=== PATIENT | female | born 1965 | race Caucasian/White ===

== ENCOUNTER 2016-12-16 13:14 | Inpatient (IN) ==
--- NOTE | 2016-12-16 14:15 | XRay Report ---
Exam: XR chest 1V Date: 12/16/2016 1:47 PM Indication: Shortness of breath Comparison: None Technical: AP Findings: Mild prominence of the cardiac silhouette. Patchy alveolar infiltrates are present bilaterally with low volume effusion. External cardiac leads are present. Mediastinum is intact without acute findings with small calcified nodes present bilaterally. Bony structures are intact. Impression: 1. Cardiomegaly with patchy alveolar infiltrates could represent pneumonic infiltrate. Pulmonary edematous changes would also be considered for this patient. PROCEDURE INTERPRETED AT [facility] DEPARTMENT OF RADIOLOGY Final Report Signed by: Dr. Pranay Pritchett
[2016-12-16] MEDS ORDERED: FUROSEMIDE INJ 160 MG in SODIUM CHLORIDE 0.9% 50 ML IV STA (14:16)
[2016-12-16] MEDS ORDERED: FUROSEMIDE 100 MG/10 ML VIAL ONE (14:22)
[2016-12-16 14:30] LABS: Eosinophils % 0.2 % (0.00-10.9); Hematocrit 26.8 VOL% (35.7-47.0); Hemoglobin 8.6 GM/DL (12.0-16.0); Lymphocytes # 0.5 10*3/uL (1.4-4.0); Lymphocytes % 4.3 % (21.3-54.2); Mean Corpuscular HGB Conc 32.1 GM/DL (32-36); Mean Corpuscular Hemoglobin 33 PG (27-34); Mean Corpuscular Volume 102.3 FL (87-102); Mean Platelet Volume 10.7 FL (9.6-12.0); Monocytes # 0.6 10*3/uL (0.11-0.8); Monocytes % 5.9 % (1.7-12.7); Neutrophils # 9.3 10*3/uL (1.4-7.4); Neutrophils % 88.6 % (38.7-73.9); Platelet Count 134 T/CUMM (130-400); Red Blood Count 2.62 MC/CUMM (3.8-5.5); Red Cell Distribution Width 22.1 % (9.3-17.3); White Blood Count 10.5 T/CUMM (4-12)
[2016-12-16 14:44] LABS: ABG Base Excess -1.2 MMOL/L (-2.5-2.5); ABG HCO3 23.5 MMOL/L (20-26); ABG Oxygen Saturation 82.9 % (95-100); ABG PCO2 39.1 MM HG (35-48); ABG PH 7.397 (7.35-7.45); ABG PO2 50.7 MM HG (80-95); ABG TCO2 24.7 MMOL/L (23-27)
[2016-12-16 14:45] LABS: Bilirubin,Total 7.4 MG/DL (0.2-1.0); Calcium 8.3 MG/DL (8.5-10.1); Osmolality,Calculated 276.7 MOS/KG (273-304); Potassium 3.6 MMOL/L (3.5-5.1); Total Protein 6.7 G/DL (6.4-8.3)
[2016-12-16 14:47] LABS: Lactic Acid 3.3 MMOL/L (0.4-2.0)
[2016-12-16] MEDS ORDERED: PROPOFOL 1,000 MG/100 ML BOTTLE IV ONE (14:54)
[2016-12-16] MEDS ORDERED: ETOMIDATE 20 MG/10 ML VIAL IV ONE (14:59)
[2016-12-16] MEDS ORDERED: SUCCINYLCHOLINE 200 MG/10 ML VIAL ONE (14:59)
[2016-12-16] MEDS: PROPOFOL 1,000 MG/100 ML BOTTLE IV SCH ×2 (15:09→19:31)
--- NOTE | 2016-12-16 15:13 | XRay Report ---
Exam: XR chest 1V portable Date: 12/16/2016 2:49 PM Indication: Status post intubation endotracheal tube and nasogastric tube placement Comparison: 12/16/2016 at 1:53 PM Technical: AP Findings: Endotracheal tube placement at the level of the aortic knob. Nasogastric tube is faintly demonstrated traverses the esophagus the upper stomach area. Diffuse patchy alveolar densities are present bilaterally with low volume effusions. Cardiomegaly is present. Impression: 1. Interval placement endotracheal tube and nasogastric tube. 2. Diffuse alveolar infiltrates and effusions present bilaterally again findings are suggestive of pulmonary edema or diffuse infiltrate or ARDS. PROCEDURE INTERPRETED AT [facility] DEPARTMENT OF RADIOLOGY Final Report Signed by: Dr. Pranay Pritchett
[2016-12-16] MEDS ORDERED: SODIUM CHLORIDE 0.9% 1,000 ML IV STA (15:16)
[2016-12-16] MEDS ORDERED: VECURONIUM 10 MG VIAL IV ONE (15:22)
[2016-12-16 15:55] LABS: Lymphocytes 5 % (20-55); Platelet Estimate Adequate; Polychromasia Slight; Segmented Neutrophils 94 % (50-85); Total Cells Counted 100
[2016-12-16] MEDS ORDERED: VECURONIUM 10 MG VIAL IV STA (16:01)
--- NOTE | 2016-12-16 16:03 | Event Note ---
Procedure note Right internal jugular triple-lumen catheter placement The patient was seen and examined. The site was marked. A timeout was taken. The patient's identity, procedure, consent and location were identified. The patient was prepped and draped in sterile fashion. Local anesthesia was given with 1% lidocaine plain. The right internal jugular vein was accessed and the guide wire placed without difficulty. After using the tissue dilator, the triple lumen catheter was placed over the wire and the wire removed intact. All ports were flushed with normal saline and functioned well. The central line was secured with the enclosed suture. A chest x-ray was ordered to confirm placement. The patient tolerated the procedure well. The nurse will place the appropriate dressing according to the hospital protocols.
[2016-12-16] MEDS ORDERED: cefTRIAXone 1,000 MG VIAL ONE (16:07)
[2016-12-16] MEDS ORDERED: ONDANSETRON 4 MG/2 ML VIAL IV PRN (16:12)
[2016-12-16] MEDS ORDERED: ALBUTEROL 2.5 MG/3 ML NEB RESP TX PRN (16:12)
[2016-12-16] MEDS ORDERED: cefTRIAXone 1,000 MG in SODIUM CHLORIDE 0.9% 100 ML IV STA (16:12)
--- NOTE | 2016-12-16 16:17 | Emergency Department Note ---
Marycruz Mora Gwan, am scribing for, and in the presence of, Miguel Green M.D. 14:58. Norma Mora Howard T, M.D., personally performed the services described in this documentation, ascribed by Sammie Joel in my presence, and it is both accurate and complete 615 . Arrival - Arrival Chief Complaint: Shortness of Breath ED Nursing Triage Note: pt has cirrhois. pt started ahving cp and sob last night. pt took an extra lasix last night. pt placed on cpap per ems Mode of Arrival: Stretcher Limitations: No Limitations Source: Patient, EMS, Old Records Reviewed, RN Notes Reviewed - History of Present Illness HPI Narrative: Patient is a 51 y/o chronically ill appearing white female with a hx of Ascites and Cirrhosis who presents to the ED via EMS with a c/o chest pain and SOB with an onset today. She has a PMHx of Cirrhosis. Patient stated that she reported to her PCP 5 days ago for same sxs and her prescriptions for Lasix was increased from 80mg to 160mg. She continued to note that her sxs began to worsen 2 days ago and was at its worse last night. Today she noticed that she was still not getting any relief from sxs and they began to include abd pain/ distention prompting her to alert EMS. Patient confirmed that her last Paracentesis was 10/10/2016 and that it was performed at [facility]. Patient arrived in moderate respiratory distress. EMS notes that en route, CPAP was placed with minimal relief. Onset (ago): hour(s) Consistency: constant Severity: severe Allergies/Adverse Reactions: Allergies Allergy/AdvReac Type Severity Reaction Status Date / Time Buspirone [From BuSpar] Allergy Unknown/Unable Verified 12/16/16 13:25 to obtain Hydromorphone [From Dilaudid] Allergy Unknown/Unable Verified 12/16/16 13:25 to obtain Review of System - Review of System 12 point system: reviewed and no additional remarkable complaints except as stated - Review of System Constitutional: Absent: chills, fever Eyes: Absent: discharge, pain Head/Ears/Nose/Throat: Absent: earache Respiratory: Absent: cough Cardiovascular: Present: as per HPI, chest pain Medical,Surgical,& Family Hx - Medical History Neurology: History of: Migraine Gastrointestinal: History of: GERD, Liver Problems (cirrhios) - Social History Smoking Status: Never smoker Frequency of Alcohol Use: None Type of Drug Use: None Exam Vital Signs: Vital Signs Temperature 96.3 F L 12/16/16 13:22 Pulse Rate 108 H 12/16/16 14:30 Respiratory Rate 30 H 12/16/16 14:30 Blood Pressure 123/58 12/16/16 13:22 O2 Sat by Pulse Oximetry 100 12/16/16 14:30 - General General appearance: alert, in distress (moderate repiratory distress), obese - Head Head exam: Present: atraumatic, normocephalic - Eye Eye exam: Present: normal appearance, PERRL, EOMI - ENT ENT exam: Present: normal oropharynx, mucous membranes moist, TM's normal bilaterally, normal external ear exam - Neck Neck exam: Present: full ROM, trachea midline. Absent: tenderness - Chest Chest inspection: Present: symmetric chest wall rise. Absent: tenderness - Respiratory Respiratory exam: Present: rales (diffuse pulmonary crackles ), respiratory distress (mildly ) - Cardiovascular Cardiovascular exam: Present: normal rhythm, tachycardia - Abdominal Exam Abdominal exam: Present: distention (abd was tight and consistant with ascites) - Extremities Exam Extremities exam: Present: other (+2 pitting edema bilateral LE) - Neurological Exam Neurological exam: Present: alert, oriented X3, CN II-XII intact. Absent: motor sensory deficit - Psychiatric Psychiatric exam: Present: anxious - Skin Skin exam: Present: warm, dry, intact Course Course Narrative: Medical decision making: Patient agreed to intubation and ET tube placed successfully on first attempt. Discussed with hospitalist for admission and continued care of multiple medical issues. Procedures - Intubation Time out performed: Yes sedative: Etomidate Mg Given: 20 paralytic: Succinylcholine Mg Given: 100 Laryngoscope: fiber optic video scope Assist Device Used: fiber optic device ET Tube Size: 7.5 ET Tube Uncuffed: No Tube Secured Depth (cm): 22 Tube Secured Location: lips Tube Placement Confirmation: visualized tube passing through cords, equal breath sounds bilaterally, no breath sounds over epigastrium, confirmation by capnometry, confirmation detector color change Patient Tolerated Procedure: well, no complications Intubation Complications: none Results - Labs CBC & BMP: 12/16/16 13:48 12/16/16 13:48 Lab Results: I have reviewed the patients labs Labs: Laboratory Tests 12/16/16 13:48 WBC 10.5 RBC 2.62 L Hgb 8.6 L Hct 26.8 L MCV 102.3 H RDW 22.1 H Plt Count 134 Neut % (Auto) 88.6 H Lymph % (Auto) 4.3 L Neut # (Auto) 9.3 H Lymph # (Auto) 0.5 L Laboratory Tests 12/16/16 12/16/16 13:48 14:41 ABG pH 7.397 ABG pCO2 39.1 ABG pO2 50.7 L ABG HCO3 23.5 ABG Total CO2 24.7 ABG O2 Saturation 82.9 L ABG Base Excess -1.2 Ammonia 54 H - Diagnostic Findings Procedure: Chest x-ray: report reviewed by me (Cardiomegaly with patchy alveolar infiltrates could represent pnumonic infiltrate. pulmonary edematous changes would also be considered for this patient. 1. Interval placement endotracheal tube and nasogastric tube. 2. Diffuse alvelor infiltrate and effusions present bilaterally again findings are suggestive of pulmonary edema or diffuse infiltrate or ARDS. ) Critical Care Time Critical Care Time: Yes Total Critical Care Time: 35 Disposition Clinical Impression: Respiratory failure, Ascites, Cirrhosis Case discussed with: patient Disposition: Still a Patient Condition: Critical Time of Disposition: 16:16
[2016-12-16] MEDS ORDERED: PANTOPRAZOLE 40 MG VIAL IV SCH (16:30)
--- NOTE | 2016-12-16 16:40 | XRay Report ---
Exam: XR chest 1V portable Date: 12/16/2016 4:00 PM Indication: Central line placement Comparison: Earlier film 2:51 PM same day Technical: AP portable Findings: Right IJ central venous catheter has been placed. The distal tip is in the superior vena cava. Endotracheal tube and nasogastric tube are present. Cardiomegaly present with diffuse alveolar infiltrates or edema and effusions present bilaterally without pneumothorax. Impression: 1. Satisfactory placement right IJ catheter with endotracheal tube and nasogastric tube demonstrated 2. Persistent infiltrates diffusely present in the lung duong or edema with associated cardiomegaly PROCEDURE INTERPRETED AT [facility] DEPARTMENT OF RADIOLOGY Final Report Signed by: Dr. Pranay Pritchett
--- NOTE | 2016-12-16 16:45 | Hospitalist History & Physical ---
Assessment and Plan (1) Pneumonia Status: Acute Current Visit: Yes (2) ARDS (adult respiratory distress syndrome) Status: Acute Current Visit: Yes (3) Anemia Status: Acute Current Visit: Yes (4) Respiratory failure Status: Acute Current Visit: Yes (5) Ascites Status: Acute Current Visit: Yes (6) Cirrhosis Status: Acute Assessment and plan: We will admit patient our service. I will start her on Zosyn. She already received antibiotics in the emergency room secondary to being a potential pneumonia. Her x-ray shows diffuse infiltrates versus arts versus edema. Going to give her IV Lasix scheduled. Going to do a paracentesis on her in the morning with studies ordered. Try to obtain records from [place] and her liver specialist from [place]. Unsure if patient will survive. She is severely debilitated. Unsure about patient's heart function. I have ordered a 2D echo. I will consult GI for cirrhosis evaluation. All of patient's healthcare has been and at other facilities. Discussed CODE STATUS with as previously stated and she is a DNR. Whether she is able to be weaned off the ventilator the next few days or not will need to be addressed with him in the future. Patient will also have a pulmonary consult. Current Visit: Yes History of Present Illness Chief complaint: Respiratory failure History of present illness: All history is obtained from the patient's . Patient was already intubated and sedated when I arrived in the emergency room. Ms. Guerrier is a 51 year old female with past medical history significant for cirrhosis who presents to our hospital with shortness of breath. As related by the patient had spent an extended time at [facility]. He said the whole entire hospitalization was 2-3 months. Ultimately she was on the ventilator at that time and treated for pneumonia. She was transferred to [facility] in [place]. She was discharged there at the end of October. She has never regained back her strength she gets very short of breath with exertion. She was supposed to have an EGD done in [facility] but secondary to being so short of breath that was postponed. They had drawn off 4 L of ascites fluid at that time. He reports that she has had a history of multiple paracentesis is in the past. She is followed by a liver specialist in [place]. She has not had one since November 21. For the past month she is in been in a general decline. She has established care with a Dr. Goyal at the [facility] in [place]. He increased her Lasix recently. Her reports that she cannot move without getting short of breath. She was having a lot of recent complaints of abdominal pain. This morning she started complaining about shortness of breath and that she needs to go to the hospital. He called EMS and they brought her up to our hospital for further evaluation. Subsequently patient required intubation in our emergency room. I discussed CODE STATUS with the . Patient would not want to be resuscitated if she coded. Patient is already on the vent and we will continue that support. Patient's expressed a concern that he would not want her to be on the ventilator for a long time. I told him that could be readdressed in the next few days. I was consulted to admit her through the emergency room. Allergies Allergy/AdvReac Type Severity Reaction Status Date / Time Buspirone [From BuSpar] Allergy Unknown/Unable Verified 12/16/16 13:25 to obtain Hydromorphone [From Dilaudid] Allergy Unknown/Unable Verified 12/16/16 13:25 to obtain Medical,Surgical,& Family Hx - Medical History Neurology: History of: Migraine Gastrointestinal: History of: GERD, Liver Problems (cirrhios) - Surgical History Additional Surgical History: Hernia repair - Family History Family History: Reports;: Additional Family History (Patient has 5 family members who also have cirrhosis) - Social History Smoking Status: Former smoker Frequency of Alcohol Use: None Type of Drug Use: None ROS unobtainable: due to endotracheal tube Exam - Constitutional Vitals: Period Temp Pulse Resp BP Sys/Patel Pulse Ox Last 24 Hr 96.3 F-96.3 F 108-117 12-36 123-123/58-58 92-100 General appearance: over weight - Head Head exam: Present: normal inspection - Eye Pupils: Present: JADYN - ENT ENT exam: Present: other (ET tube in place) - Neck Neck exam: Present: normal inspection - Respiratory Respiratory exam: Present: rales (Diffusely), rhonchi (Diffusely) - Cardiovascular Cardiovascular exam: Present: systolic murmur, tachycardia - GI/Abdominal GI/Abdominal exam: Present: ascites, distended, hypoactive bowel sounds - Extremities Exam Extremities exam: Present: edema - Neurological Exam Neurological exam: Present: other (Sedated) - Skin Skin exam: Present: normal color Results - Labs CBC & BMP: 12/16/16 13:48 12/16/16 13:48
[2016-12-16 17:13] LABS: INR 1.8; PT Patient Result 19.2 SECS
[2016-12-16 17:23] LABS: ABG Base Excess -3.6 MMOL/L (-2.5-2.5); ABG HCO3 23.7 MMOL/L (20-26); ABG Oxygen Saturation 98.1 % (95-100); ABG PCO2 53.8 MM HG (35-48); ABG PH 7.261 (7.35-7.45); ABG PO2 137.8 MM HG (80-95); ABG TCO2 25.3 MMOL/L (23-27)
[2016-12-16 17:30] LABS: Apearance,Urine CLEAR (Clear); Bilirubin,Urine Negative (Negative); Blood, Urine Negative (Negative); Glucose,Urine (UA) Negative (Negative); Hyaline Casts,Urine 105 /LPF (0-3); Ketones,Urine Negative (Negative); Nitrite,Urine Negative (Negative); Protein,Urine Negative; RBC,Urine 1 /HPF (0-4); Squamous Epithelial Cell,Urine Occasional /HPF (0-10); Urine Color Yellow (Yellow); Urine Specific Gravity 1.006 (1.001-1.035); Urine Urobilinogen < 2.0 EU/DL (0.2-1.0); WBC,Urine 1 /HPF (0-6)
[2016-12-16] MEDS: PIPERACILLIN/TAZOBACTAM 3,375 MG in SODIUM CHLORIDE 0.9% 100 ML IV SCH (19:00)
[2016-12-16] MEDS: SODIUM CHLORIDE 0.9% 1,000 ML IV SCH (19:00)
[2016-12-16 19:27] LABS: ABG Base Excess -3.6 MMOL/L (-2.5-2.5); ABG HCO3 22.4 MMOL/L (20-26); ABG Oxygen Saturation 95.7 % (95-100); ABG PCO2 44.7 MM HG (35-48); ABG PH 7.318 (7.35-7.45); ABG TCO2 23.8 MMOL/L (23-27); Pt O2 Delivery Device Ventilator
[2016-12-16] MEDS: ALBUTEROL/IPRATROPIUM 3 ML NEB RESP TX SCH (19:38)
[2016-12-16] MEDS: NOREPINEPHRINE 16 MG in SODIUM CHLORIDE 0.9% 234 ML IV SCH (21:39)
[2016-12-16] MEDS ORDERED: MIDAZOLAM 100 MG in SODIUM CHLORIDE 0.9% 80 ML IV SCH (23:30)
[2016-12-17] MEDS: PIPERACILLIN/TAZOBACTAM 3,375 MG in SODIUM CHLORIDE 0.9% 100 ML IV SCH ×2 (00:53→09:26)
[2016-12-17] MEDS: ALBUTEROL/IPRATROPIUM 3 ML NEB RESP TX SCH ×3 (01:00→12:02)
[2016-12-17 03:53] LABS: Allen Test Positive; Pt O2 Delivery Device Ventilator
[2016-12-17 03:55] LABS: ABG Base Excess -7.2 MMOL/L (-2.5-2.5); ABG HCO3 20.1 MMOL/L (20-26); ABG PCO2 46.7 MM HG (35-48); ABG PH 7.251 (7.35-7.45); ABG TCO2 21.5 MMOL/L (23-27)
[2016-12-17 04:33] LABS: ABG HCO3 18.3 MMOL/L (20-26); ABG Oxygen Saturation 65.7 % (95-100); ABG PCO2 48.3 MM HG (35-48); ABG PH 7.233 (7.35-7.45); ABG PO2 42.4 MM HG (80-95); ABG TCO2 19.4 MMOL/L (23-27)
[2016-12-17 05:04] LABS: Basophils % 0.1 % (0.0-0.8); Eosinophils # 0.1 10*3/uL (0.0-0.87); Eosinophils % 0.6 % (0.00-10.9); Hematocrit 26.4 VOL% (35.7-47.0); Hemoglobin 8.2 GM/DL (12.0-16.0); Immature Granulocytes % 1.9 %; Immature Granulocytes Absolute 0.27 #; Lymphocytes # 0.7 10*3/uL (1.4-4.0); Lymphocytes % 4.7 % (21.3-54.2); Mean Corpuscular HGB Conc 31.1 GM/DL (32-36); Mean Corpuscular Hemoglobin 34 PG (27-34); Mean Corpuscular Volume 107.8 FL (87-102); Mean Platelet Volume 10.3 FL (9.6-12.0); Monocytes # 0.8 10*3/uL (0.11-0.8); Monocytes % 5.8 % (1.7-12.7); NRBC # 0.09 10*3/uL; Neutrophils # 12.1 10*3/uL (1.4-7.4); Neutrophils % 86.9 % (38.7-73.9); Platelet Count 177 T/CUMM (130-400); Red Blood Count 2.45 MC/CUMM (3.8-5.5); Red Cell Distribution Width 22.2 % (9.3-17.3); White Blood Count 13.9 T/CUMM (4-12)
[2016-12-17] MEDS ORDERED: SODIUM CHLORIDE 0.9% 500 ML IV ONE ×3 (05:04→10:26)
[2016-12-17 05:37] LABS: Lymphocytes 4 % (20-55); Nucleated Red Blood Cells 1 (0-5); Segmented Neutrophils 93 % (50-85); Total Cells Counted 100
[2016-12-17 05:38] LABS: Platelet Estimate Normal
[2016-12-17 05:45] LABS: Albumin 1.7 G/DL (3.4-5.0); Calcium 7.7 MG/DL (8.5-10.1); Osmolality,Calculated 279.4 MOS/KG (273-304); Potassium 3.6 MMOL/L (3.5-5.1); Total Protein 6.1 G/DL (6.4-8.3)
[2016-12-17 05:52] LABS: PT Patient Result 22.4 SECS
[2016-12-17 05:53] LABS: Lactic Acid 6.6 MMOL/L (0.4-2.0)
[2016-12-17] MEDS ORDERED: PHENYLEPHRINE DRIP 40 MG/250 ML PREMIX IV SCH (07:30)
[2016-12-17] MEDS: NOREPINEPHRINE 16 MG in SODIUM CHLORIDE 0.9% 234 ML IV SCH ×2 (07:32→13:31)
--- NOTE | 2016-12-17 07:33 | Pulmonology Consult Note ---
Assessment and Plan (1) Respiratory failure Status: Acute Assessment and plan: Oxygen saturation measures 97% despite low PO2 on the blood gases. Suspect they were venous gases. Hopefully we can get her blood pressure up enough to adequately manage her ABGs. We do not have any old x-rays to compare. I suspect she may have some chronic interstitial disease from previous pneumonia or ARDS. Certainly appears to have pneumonia and ARDS now Current Visit: Yes (2) Ascites Status: Acute Assessment and plan: Due to cirrhosis. With her tenderness I would be concerned about spontaneous bacterial peritonitis. GI is to see. May need tap. She is on antibiotics with Zosyn Current Visit: Yes (3) Cirrhosis Status: Acute Assessment and plan: Apparently has advanced cirrhosis. GI to follow-up Current Visit: Yes (4) Pneumonia Status: Acute Assessment and plan: On empiric antibiotics. Cultures pending. 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 However we will treat with mechanical ventilatory support and enough PEEP to keep her oxygen saturation acceptable. Current Visit: Yes (6) Anemia Status: Acute Assessment and plan: Hematocrit 26 this is likely chronic. Current Visit: Yes History of Present Illness Chief complaint: Respiratory failure History of present illness: Ms. Guerrier is a 51 year old female who has cirrhosis. She had a prolonged hospitalization for 2 or 3 months recently at [place] being discharged 2 months ago. Then went to rehab injection but did not make much progress. She has had multiple paracenteses with fluid drawn off. She comes in here with increased shortness of breath. Now on the ventilator and is hypotensive. Oxygen saturations look okay but her PO2 measured 42 on the last blood gases. I suspect they were venous. With her low blood pressures been difficult for the wood heel flap rubber to hit an artery. Patient's has made her a DO NOT RESUSCITATE but apparently wants to continue with mechanical ventilation for now but not long-term. Patient is a former smoker. Apparently has multiple family members with cirrhosis. Allergies Allergy/AdvReac Type Severity Reaction Status Date / Time Buspirone [From BuSpar] Allergy Unknown/Unable Verified 12/16/16 13:25 to obtain Hydromorphone [From Dilaudid] Allergy Unknown/Unable Verified 12/16/16 13:25 to obtain ROS unobtainable: due to endotracheal tube Exam (Pulmonay) H&P - Constitutional Vitals: Period Temp Pulse Resp BP Sys/Patel Pulse Ox Last 24 Hr 96.3 F-98 F 93-117 12-36 75-123/40-73 92-100 Exam: Systolic blood pressure 77 on pressures. Patient is drowsy but responsive. Pupils do react. Orotracheal tube in place. Neck is supple. Chest reveals some scattered rhonchi and basilar rales. Heart rate is 110. Oxygen saturation 97%. No murmurs. Abdomen distended with ascites. She does have direct tenderness in the abdomen. Extremities she has 2+ peripheral edema. Medical,Surgical,& Family Hx - Medical History Neurology: History of: Migraine Gastrointestinal: History of: GERD, Liver Problems (cirrhios) - Family History Family History: Reports;: Additional Family History (Patient has 5 family members who also have cirrhosis) - Social History Smoking Status: Former smoker Frequency of Alcohol Use: None Type of Drug Use: None Results - Labs CBC & BMP: 12/17/16 04:20 12/17/16 04:20 Lab Results: I have reviewed the past 24 hour labs - Diagnostic Findings Procedure: Chest x-ray: image reviewed by me (Bilateral interstitial infiltrates. ET tube good position.)
[2016-12-17] MEDS ORDERED: FUROSEMIDE 40 MG/4 ML VIAL IV SCH (08:00)
[2016-12-17] MEDS ORDERED: HYDROCORTISONE 100 MG VIAL IV SCH (08:00)
[2016-12-17] MEDS: SODIUM CHLORIDE 0.9% 1,000 ML IV SCH (08:15)
--- NOTE | 2016-12-17 08:30 | Hospitalist Progress Note ---
Assessment and Plan - Time spent with patient Time spent with patient: Greater than 30 minutes (1) POOL (acute kidney injury) Status: Acute Assessment and plan: Worsening renal function despite IV fluid hydration. Patient is on multiple pressors. She appears to have an element of acute tubular necrosis with decreased urine output and worsening renal function despite aggressive medical management. Current Visit: Yes (2) Respiratory failure Status: Acute Current Visit: Yes Qualifiers: Chronicity: acute on chronic Respiratory failure complication: hypoxia Qualified Code(s): J96.21 - Acute and chronic respiratory failure with hypoxia (3) Ascites Status: Chronic Assessment and plan: History of recurrent ascites requiring paracentesis. There could be an element of spontaneous bacterial peritonitis. GI consulted. Consider paracentesis with fluid analysis. Continue empiric antibiotic therapy. Current Visit: Yes Qualifiers: Ascites type: other type Qualified Code(s): R18.8 - Other ascites (4) Cirrhosis Status: Chronic Assessment and plan: The patient has an elevated INR secondary to hepatocellular dysfunction. Her bilirubin is elevated and she is jaundiced. Current Visit: Yes Qualifiers: Ascites presence: with ascites (5) Pneumonia Status: Acute Assessment and plan: Continue antibiotics. Follow-up cultures. Pulmonary following. Continue mechanical ventilation. Current Visit: Yes Qualifiers: Laterality: bilateral (6) ARDS (adult respiratory distress syndrome) Status: Acute Assessment and plan: Given the appearance of the bilateral infiltrates on chest x-ray and relative hypoxia, as well as the multisystem organ failure ARDS is a likely diagnosis. This was discussed with Dr. Lunsford at the bedside. Current Visit: Yes (7) Anemia Status: Chronic Current Visit: Yes Hospitalist: Subjective Interval history: Patient seen and examined. Case discussed with nursing staff. Labs reviewed. Patient remains critically ill. She is maxed out on Levophed and Hamzah- Synephrine has been started this morning. Case discussed with Dr. Lunsford on rounds. She is being treated for ARDS and appears to have liver failure. Urine output is scant and marginal. She has multisystem organ failure and has a very poor prognosis. She is a DO NOT RESUSCITATE. There is no family at the bedside at this time. I have informed the nurses to notify me upon the families arrival. Exam - Constitutional Vitals: Period Temp Pulse Resp BP Sys/Patel Pulse Ox Last 24 Hr 96.3 F-98.8 F 93-117 12-36 62-123/34-73 89-100 Exam: Constitutional System: Severe distress. No tremulousness. Jaundice noted Head: Normocephalic, atraumatic. Ears, Nose and Throat System: No pain or tenderness. No epistaxis or discharge. Endotracheal tube in place. Eyes System: Pupils equal, round, and reactive. Extraocular muscles intact. Neck: Supple, without adenopathy, No jugular venous distention. Right IJ central line in place. Respiratory System: Chest with rhonchi to auscultation. Cardiovascular System: Heart with tachycardic rate and rhythm. No murmur. GI System: Abdomen distended with ascites, nontender. Normo active bowel sounds present. Musculoskeletal System: limbs with bilateral pedal edema. Full distal pulses. Neurological System: Sedated with Versed Psychiatric System: Unobtainable secondary to patient's mental status Results - Labs CBC & BMP: 12/17/16 04:20 12/17/16 04:20 Lab Results: I have reviewed the past 24 hour labs - Diagnostic Findings Procedure: Chest x-ray: image reviewed by me, report reviewed by me
[2016-12-17] MEDS ORDERED: ALBUMIN 25% 25 GM in PREMIX 1 EACH IV ONE (10:26)
--- NOTE | 2016-12-17 10:33 | XRay Report ---
Portable chest Date: 12/17/2016 Clinical history: Dilator Comparison: 12/16/2016 Technique: Portable AP sitting chest Findings: The heart is minimally enlarged with stable supportive devices. Persistent diffuse parenchymal findings with small pleural effusions. Stable mediastinum and osseous structures. Impression: Supportive devices remain in satisfactory position. Progressive infiltration/edema/atelectasis in the right lung with similar minimally reduced parenchymal findings in the left lung. Small pleural effusions. PROCEDURE INTERPRETED AT [facility] DEPARTMENT OF RADIOLOGY Final Report Signed by: Dr. Juana Valera
[2016-12-17] MEDS ORDERED: PHENYLEPHRINE INJ 160 MG in SODIUM CHLORIDE 0.9% 234 ML IV SCH (11:00)
--- NOTE | 2016-12-17 11:12 | Nephrology Consult Note ---
History of Present Illness Chief complaint: Renal failure History of present illness: Ms. Guerrier is a 51 year old female admitted for shortness of breath requiring intubation. She also has a history of cirrhosis and has had multiple paracentesis. She has been hypotensive urine output has decreased and serum creatinine is noted to be 2.1. Nephrology is consulted for renal issues. Patient is a DO NOT RESUSCITATE. Again blood pressures have been dramatically low since admission. Allergies Allergy/AdvReac Type Severity Reaction Status Date / Time Buspirone [From BuSpar] Allergy Unknown/Unable Verified 12/16/16 13:25 to obtain Hydromorphone [From Dilaudid] Allergy Unknown/Unable Verified 12/16/16 13:25 to obtain Medical,Surgical,& Family Hx - Medical History Neurology: History of: Migraine Gastrointestinal: History of: GERD, Liver Problems (cirrhios) - Family History Family History: Reports;: Additional Family History (Patient has 5 family members who also have cirrhosis) - Social History Smoking Status: Former smoker Frequency of Alcohol Use: None Type of Drug Use: None Review of Systems ROS unobtainable: due to endotracheal tube Exam - Vital Signs Vital signs: Period Temp Pulse Resp BP Sys/Patel Pulse Ox Last 24 Hr 96.3 F-98.8 F 93-117 12-36 62-123/34-73 89-100 - General Appearance General appearance: intubated, frail EENT: ATNC Respiratory: rales, course breath sounds Cardiology: regular rate, regular rhythm Gastrointestinal: no tenderness Results - Labs CBC & BMP: 12/17/16 04:20 12/17/16 04:20 Assessment and Plan (1) Respiratory failure Status: Acute Current Visit: Yes Qualifiers: Chronicity: acute on chronic Respiratory failure complication: hypoxia Qualified Code(s): J96.21 - Acute and chronic respiratory failure with hypoxia (2) Ascites Status: Chronic Current Visit: Yes Qualifiers: Ascites type: other type Qualified Code(s): R18.8 - Other ascites (3) Cirrhosis Status: Chronic Current Visit: Yes Qualifiers: Ascites presence: with ascites (4) Pneumonia Status: Acute Current Visit: Yes Qualifiers: Laterality: bilateral (5) ARDS (adult respiratory distress syndrome) Status: Acute Current Visit: Yes (6) POOL (acute kidney injury) Status: Acute Assessment and plan: Due to ATN. Patient remains hypotensive. Very difficult to maintain renal perfusion at these low pressures. Moreover patient is less likely a candidate for renal replacement therapy due to low blood pressure. Very poor prognosis. Current Visit: Yes
[2016-12-17] MEDS ORDERED: DOPamine 800 MG/250 ML PREMIX IV SCH (11:30)
--- NOTE | 2016-12-17 11:45 | Event Note ---
The patient continues to worsen despite aggressive medical therapy. She is maxed out on 2 pressors and continues to have hypotension. She was started on dopamine. Albumin and IV fluid boluses have been ordered. Nephrology consult reviewed. Patient is a very poor prognosis. She has minimal urine output. I have spent 64 minutes of critical care time with this patient today. Case was discussed with gastroenterology as well as pulmonary on rounds
[2016-12-17] MEDS ORDERED: SODIUM BICARBONATE 50 MEQ/50 ML SYRINGE IV ONE (11:49)
--- NOTE | 2016-12-17 11:56 | Gastrointestinal Consult Note ---
Assessment and Plan (1) Cirrhosis Status: Chronic Assessment and plan: This patient unfortunately has developed cirrhosis from some etiology. Unfortunately we do not have any of the records concerning her workup up to this point which would either point to alcoholic liver disease versus nonalcoholic liver disease versus autoimmune hepatitis or hemochromatosis or alpha 1 antitrypsin deficiency most likely. It is possible she may have viral hepatitis as well again without records we are not able to assess her adequately. Unfortunately she is in the dying process. Her meld score is 29 at this time. She is not a candidate for liver transplant at this point and will likely not survive the next 24 hours. Her family's been called by the bedside and she has been made a DNR. Currently she is on 3 pressor agents. There is nothing for GI to offer in this particular situation she would not survive a paracentesis or upper endoscopy. She does not appear to be actively bleeding, I am afraid to do a rectal examination due to the parasympathetic nervous stimulation and tenuous situation she is in. Lactic acid level increases tend to point towards an ischemic process occurring in her GI tract resulting in a buildup of this waste product. Will check an ammonia level at this time as well. No other meaningful recommendations unfortunately. Current Visit: Yes Qualifiers: Ascites presence: with ascites (2) Ascites Status: Chronic Assessment and plan: This patient not be able to tolerate a paracentesis at this time she does have ascites present. This is likely due to portal hypertension. Current Visit: Yes Qualifiers: Ascites type: other type Qualified Code(s): R18.8 - Other ascites (3) Hypotension (arterial) Status: Acute Assessment and plan: I suspect this may be due to sepsis versus mesenteric ischemia resulting in third spacing. This patient is actively dying at this time. I should be very surprised if she lasts the next 24 hours. If she does we can consider doing upper endoscopy, should her pressures stabilize for potential banding. If this miraculously should occur we need to obtain old records from [place] and [facility] as well. Current Visit: Yes (4) Anemia Status: Chronic Assessment and plan: Patient's hematocrit is 26% at this time, will continue to follow this. Current Visit: Yes History of Present Illness Chief complaint: Cirrhosis with ascites and worsening bowel ischemia/anemia History of present illness: Ms. Guerrier is a 51 year old female who is sedated and intubated and is able to provide no additional history--she is in end-stage liver patient who is been referred to [facility] for liver evaluation after having most of her workup done at [facility] with a unknown swage tender. She is said to have cirrhosis and does have a total bilirubin of 8.0 today with an alkaline phosphatase of 147 , ALT is normal at 15 with an AST of 65, albumin level is 1.7. Usually with cirrhosis the MCV is high as it is in this patient at 102.3 but the platelet level is low hers is borderline normal at 134. This is a acute phase reactant may be worsened with infectious state or cancer or rheumatologic disorder as well. The patient is known to have ascites and was due to undergo both EGD and peritoneal tap in [place] but became too unstable requiring intubation, and now the addition of 3 pressors (dopamine, norepinephrine, and phenylephrine). Her lactic acid levels tend to point towards intestinal ischemia--the patient's white blood cell count is also increasing currently up from 10.5-->13.9, with 93 % neutrophils/left shift, but a hematocrit that is stable at 26.4%. The cause for her cirrhosis is not clear. INR is 2.0. This patient's MELD score calculates out to 29. Currently the patient has acute kidney injury, anemia, ARDS, pneumonia, cirrhosis, ascites and unfortunately respiratory failure as well. She has been classified as a DO NOT RESUSCITATE and her family is being called to the bedside considering her very grim prognosis. Allergies Allergy/AdvReac Type Severity Reaction Status Date / Time Buspirone [From BuSpar] Allergy Unknown/Unable Verified 12/16/16 13:25 to obtain Hydromorphone [From Dilaudid] Allergy Unknown/Unable Verified 12/16/16 13:25 to obtain Medical,Surgical,& Family Hx - Medical History Neurology: History of: Migraine Gastrointestinal: History of: GERD, Liver Problems (cirrhios) - Family History Family History: Reports;: Additional Family History (Patient has 5 family members who also have cirrhosis) - Social History Smoking Status: Former smoker Frequency of Alcohol Use: None Type of Drug Use: None ROS unobtainable: due to endotracheal tube, due to encephalopathy Exam - Constitutional Vitals: Period Temp Pulse Resp BP Sys/Patel Pulse Ox Last 24 Hr 96.3 F-98.8 F 93-117 12-36 54-123/29-73 89-100 General appearance: severe distress - Head Head exam: Present: normocephalic, atraumatic - Eye Eye exam: Present: scleral icterus, other (On lid retraction the patient's left eye shows exotropia, 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 Absent: guarding - Extremities Exam Extremities exam: Present: edema (1-2+ pitting in the extremities) - Neurological Exam Neurological exam: Present: altered (Patient is either encephalopathic versus obtunded on the ventilator versus sedated) - Psychiatric Psychiatric exam: Present: other (Unable to assess) - Skin Skin exam: Present: warm Results - Labs CBC & BMP: 12/17/16 04:20 12/17/16 04:20
[2016-12-17 14:47] VITALS: BP 44/14
--- NOTE | 2016-12-17 15:45 | Discharge Summary ---
Hospital Course - Hospital Course Hospital Course: 51-year-old white female admitted to the hospital on 12/16/2016 with acute respiratory failure and bilateral pneumonia versus ARDS. The patient has a history of cirrhosis and pneumonia. She had a prolonged hospitalization a few months ago at [place] and was then transferred to rehab. Her family reports that she has had a downward course since that hospitalization. She presented with cirrhosis with hyperbilirubinemia with respiratory failure. She is admitted to the intensive care unit and started on antibiotics. During the course of the hospitalization she became more hypotensive requiring pressors. She was started on Levophed, then Hamzah-Synephrine was added then dopamine was added. The patient had little to no urine output. She was seen in consultation by pulmonary nephrology and gastroenterology. The patient ultimately succumbed to her illness at 3:45 PM despite aggressive medical care. The patient's family was at the bedside. They requested comfort care measures and cessation of pressors for blood pressure support. Pressors were turned off at 1440. Patients time of is 1545. Cause of ARDS Acute respiratory failure Acute kidney injury Chronic liver disease with cirrhosis Bilateral pneumonia - Time spent with patient Time with patient DS: Greater than 30 minutes (Total discharge time for this patient, including [id number] time, clinical documentation, medication reconciliation, and discharge planning was 70 minutes) Diagnosis - Discharge Diagnosis (1) POOL (acute kidney injury) Status: Acute (2) Respiratory failure Status: Acute (3) Ascites Status: Chronic (4) Cirrhosis Status: Chronic (5) Pneumonia Status: Acute (6) ARDS (adult respiratory distress syndrome) Status: Acute (7) Anemia Status: Chronic Discharge Plan - Discharge Data Disposition: - Follow Up or Referral - Forms/Instructions Exam - Constitutional Vitals: Period Temp Pulse Resp BP Sys/Patel Pulse Ox Last 24 Hr 97.3 F-98.8 F 93-115 12-36 44-119/14-73 89-100 Discharge Results Procedures and tests throughout hospitalization: Pending Orders 12/16/16 16:00 Urine Culture Routine 12/17/16 04:00 US paracentesis abd w/image IN AM Albumin,Peritoneal Fluid Cell Count w Diff, Peritone Fl Total Protein,Peritoneal Fluid 12/18/16 04:00 Ammonia IN AM 12/19/16 04:00 Ammonia IN AM Labs on day of discharge: Labs from last 24 hours 12/17/16 12/17/16 12/17/16 Unknown 04:20 04:20 WBC RBC Hgb Hct MCV MCH MCHC RDW Plt Count MPV Neut % (Auto) Lymph % (Auto) [place] % (Auto) Eos % (Auto) Baso % (Auto) Neut # (Auto) Lymph # (Auto) [place] # (Auto) Eos # (Auto) Baso # (Auto) Total Counted Immature Gran % Nucleated RBC % Immature Gran # Segmented Neutrophils Lymphocytes Monocytes Nucleated RBCs Nucleated RBCs # Platelet Estimate Polychromasia INR 2.0 PT Patient/Control Mix 22.4 ABG pH 7.233 L ABG pCO2 48.3 H ABG pO2 42.4 L ABG HCO3 18.3 L ABG Total CO2 19.4 L ABG O2 Saturation 65.7 L ABG Base Excess -7.0 L FiO2 Sodium 140 Potassium 3.6 Chloride 103 Carbon Dioxide 21 Anion Gap 19.6 H BUN 19 H Creatinine 2.10 H GFR Calculation 36 BUN/Creatinine Ratio 9.00 Glucose 74 Calculated Osmolality 279.4 Lactic Acid 6.6 H Calcium 7.7 L Total Bilirubin 8.00 H AST 65 H ALT 15 Alkaline Phosphatase 147 H Ammonia 73 H B-Natriuretic Peptide Total Protein 6.1 L Albumin 1.7 L Globulin 4.4 H Albumin/Globulin Ratio 0.3 L Urine Color Urine Appearance Urine pH Ur Specific [place] Urine Protein Urine Glucose (UA) Urine Ketones Urine Blood Urine Nitrate Urine Bilirubin Urine Urobilinogen Urine Leukocytes Urine RBC Urine WBC Ur Squamous Epith Cells Hyaline Casts Ur Culture Indicated? 12/17/16 12/17/16 12/16/16 04:20 03:19 19:35 WBC 13.9 H D RBC 2.45 L Hgb 8.2 L Hct 26.4 L MCV 107.8 H MCH 34 MCHC 31.1 L RDW 22.2 H Plt Count 177 D MPV 10.3 Neut % (Auto) 86.9 H Lymph % (Auto) 4.7 L [place] % (Auto) 5.8 Eos % (Auto) 0.6 Baso % (Auto) 0.1 Neut # (Auto) 12.1 H Lymph # (Auto) 0.7 L [place] # (Auto) 0.8 Eos # (Auto) 0.1 Baso # (Auto) 0.0 Total Counted 100 Immature Gran % 1.9 Nucleated RBC % 0.6 Immature Gran # 0.27 Segmented Neutrophils 93 H Lymphocytes 4 L Monocytes 3 Nucleated RBCs 1 Nucleated RBCs # 0.09 Platelet Estimate Normal Polychromasia INR PT Patient/Control Mix ABG pH 7.251 L ABG pCO2 46.7 ABG pO2 32.0 L* ABG HCO3 20.1 ABG Total CO2 21.5 L ABG O2 Saturation 52.0 L ABG Base Excess -7.2 L FiO2 70.00 Sodium Potassium Chloride Carbon Dioxide Anion Gap BUN Creatinine GFR Calculation BUN/Creatinine Ratio Glucose Calculated Osmolality Lactic Acid 3.9 H Calcium Total Bilirubin AST ALT Alkaline Phosphatase Ammonia B-Natriuretic Peptide Total Protein Albumin Globulin Albumin/Globulin Ratio Urine Color Urine Appearance Urine pH Ur Specific [place] Urine Protein Urine Glucose (UA) Urine Ketones Urine Blood Urine Nitrate Urine Bilirubin Urine Urobilinogen Urine Leukocytes Urine RBC Urine WBC Ur Squamous Epith Cells Hyaline Casts Ur Culture Indicated? 12/16/16 12/16/16 12/16/16 19:18 17:20 17:10 WBC RBC Hgb Hct MCV MCH MCHC RDW Plt Count MPV Neut % (Auto) Lymph % (Auto) [place] % (Auto) Eos % (Auto) Baso % (Auto) Neut # (Auto) Lymph # (Auto) [place] # (Auto) Eos # (Auto) Baso # (Auto) Total Counted Immature Gran % Nucleated RBC % Immature Gran # Segmented Neutrophils Lymphocytes Monocytes Nucleated RBCs Nucleated RBCs # Platelet Estimate Polychromasia INR PT Patient/Control Mix ABG pH 7.318 L 7.261 L ABG pCO2 44.7 53.8 H ABG pO2 91.0 137.8 H ABG HCO3 22.4 23.7 ABG Total CO2 23.8 25.3 ABG O2 Saturation 95.7 98.1 ABG Base Excess -3.6 L -3.6 L FiO2 70.00 Sodium Potassium Chloride Carbon Dioxide Anion Gap BUN Creatinine GFR Calculation BUN/Creatinine Ratio Glucose Calculated Osmolality Lactic Acid Calcium Total Bilirubin AST ALT Alkaline Phosphatase Ammonia B-Natriuretic Peptide Total Protein Albumin Globulin Albumin/Globulin Ratio Urine Color Yellow Urine Appearance Clear Urine pH 5.0 Ur Specific [place] 1.006 Urine Protein Negative Urine Glucose (UA) Negative Urine Ketones Negative Urine Blood Negative Urine Nitrate Negative Urine Bilirubin Negative Urine Urobilinogen < 2.0 H Urine Leukocytes Negative Urine RBC 1 Urine WBC 1 Ur Squamous Epith Cells Occasional Hyaline Casts 105 Ur Culture Indicated? Not indicated 12/16/16 12/16/16 12/16/16 16:50 16:50 16:50 WBC RBC Hgb Hct MCV MCH MCHC RDW Plt Count MPV Neut % (Auto) Lymph % (Auto) [place] % (Auto) Eos % (Auto) Baso % (Auto) Neut # (Auto) Lymph # (Auto) [place] # (Auto) Eos # (Auto) Baso # (Auto) Total Counted Immature Gran % Nucleated RBC % Immature Gran # Segmented Neutrophils Lymphocytes Monocytes Nucleated RBCs Nucleated RBCs # Platelet Estimate Polychromasia INR 1.8 PT Patient/Control Mix 19.2 ABG pH ABG pCO2 ABG pO2 ABG HCO3 ABG Total CO2 ABG O2 Saturation ABG Base Excess FiO2 Sodium Potassium Chloride Carbon Dioxide Anion Gap BUN Creatinine GFR Calculation BUN/Creatinine Ratio Glucose Calculated Osmolality Lactic Acid 3.1 H Calcium Total Bilirubin AST ALT Alkaline Phosphatase Ammonia B-Natriuretic Peptide 241 H Total Protein Albumin Globulin Albumin/Globulin Ratio Urine Color Urine Appearance Urine pH Ur Specific [place] Urine Protein Urine Glucose (UA) Urine Ketones Urine Blood Urine Nitrate Urine Bilirubin Urine Urobilinogen Urine Leukocytes Urine RBC Urine WBC Ur Squamous Epith Cells Hyaline Casts Ur Culture Indicated? 12/16/16 13:48 WBC RBC Hgb Hct MCV MCH MCHC RDW Plt Count MPV Neut % (Auto) Lymph % (Auto) [place] % (Auto) Eos % (Auto) Baso % (Auto) Neut # (Auto) Lymph # (Auto) [place] # (Auto) Eos # (Auto) Baso # (Auto) Total Counted 100 Immature Gran % Nucleated RBC % Immature Gran # Segmented Neutrophils 94 H Lymphocytes 5 L Monocytes 1 L Nucleated RBCs Nucleated RBCs # Platelet Estimate Adequate Polychromasia Slight INR PT Patient/Control Mix ABG pH ABG pCO2 ABG pO2 ABG HCO3 ABG Total CO2 ABG O2 Saturation ABG Base Excess FiO2 Sodium Potassium Chloride Carbon Dioxide Anion Gap BUN Creatinine GFR Calculation BUN/Creatinine Ratio Glucose Calculated Osmolality Lactic Acid Calcium Total Bilirubin AST ALT Alkaline Phosphatase Ammonia B-Natriuretic Peptide Total Protein Albumin Globulin Albumin/Globulin Ratio Urine Color Urine Appearance Urine pH Ur Specific [place] Urine Protein Urine Glucose (UA) Urine Ketones Urine Blood Urine Nitrate Urine Bilirubin Urine Urobilinogen Urine Leukocytes Urine RBC Urine WBC Ur Squamous Epith Cells Hyaline Casts Ur Culture Indicated? DS: Provider Date of admission: 12/16/16 15:36 Primary care physician: . No PCP Attending physician on admission: Wilian Zuleta MD Consults: 12/16/16 16:16 Consult to Physician [CONS] Routine Comment: manage vent and poss ARDS/pneumonia Consulting Provider: Alejandro Lunsofrd Consult to Specialist Group: Pulmonology Person Notified: BRIAN Date Notified: 12/16/16 Time Notified: 17:51 Consult Notification Comment: VENT ORDERS GIVEN 12/16/16 16:52 Consult to Physician [CONS] Routine Comment: Consulting Provider: Ron Tejeda Consult to Specialist Group: Gastroenterology When should Consulting Provider be notified: In am 12/16/16 19:12 Consult to Dietitian [CONS] Routine Reason for Dietitian: Dietary Consult 12/17/16 09:18 Consult to Physician [CONS] Routine Comment: POOL, cirrhosis Consulting Provider: Main Bui Jr. Discharging clinician: Anette Gill MD Expected date of discharge: 12/17/16
--- NOTE | 2016-12-17 16:24 | ECHO Report ---
Juana Guerrier Exam Date: 12/17/2016 09:48 Referring Physician: Technologist: Елена Allan RDCS Age: 51 Ht (in): 69 Wt (lb): 270 Gender: F Exam Location: [facility] Echo Indications: Pneumonia, Acute respiratory failure, unspecified whether with hypoxia or hypercapnia, ARDS, Anemia, Ascites, Cirrhosis BP: 82 / 44 HR: 109 Rhythm: Sinus Technical Quality: Good IMPRESSIONS Normal left ventricular cavity size. Mild left ventricular hypertrophy. Left ventricular ejection fraction is estimated at 55 %. The right ventricle is normal in size and function. The right atrium is normal in size. The left atrium is mildly enlarged. Morphologically normal mitral valve. Mild mitral valve regurgitation. Aortic valve sclerosis without stenosis. Mean gradient 18 mmHg, EDWARD 1.8 cm. No aortic valve regurgitation. Morphologically normal tricuspid valve. Mild tricuspid valve regurgitation. Tricuspid regurgitation velocities suggest a PAP of 57 mmHg. Morphologically normal pulmonic valve without significant stenosis. There is no pulmonic regurgitation. Normal pericardium without effusion. Normal ascending aorta dimension. MEASUREMENTS (Male / Female) Normal Values 2D ECHO LV Diastolic Diameter PLAX 4.6 cm 4.2 - 5.9 / 3.9 - 5.3 cm LV Systolic Diameter PLAX 3.6 cm LV Fractional Shortening PLAX 20.8 % IVS Diastolic Thickness 1.2 cm 0.6 - 1.0 / 0.6 - 0.9 cm LVPW Diastolic Thickness 1.2 cm 0.6 - 1.0 / 0.6 - 0.9 cm RV Internal Dim ED PLAX 4.1 cm Aortic Root Diameter 3.0 cm LA Systolic Diameter LX 4.0 cm 3.0 - 4.0 / 2.7 - 3.8 cm DOPPLER TR Peak Velocity 344.0 cm/s TR Peak Gradient 47.3 mmHg FINDINGS Left Ventricle Normal left ventricular cavity size. Mild left ventricular hypertrophy. Left ventricular ejection fraction is estimated at 55 %. Right Ventricle The right ventricle is normal in size and function. Right Atrium The right atrium is normal in size. Left Atrium The left atrium is mildly enlarged. Mitral Valve Morphologically normal mitral valve. Mild mitral valve regurgitation. Aortic Valve Aortic valve sclerosis without stenosis. Mean gradient 18 mmHg, EDWARD 1.8 cm. No aortic valve regurgitation. Tricuspid Valve Morphologically normal tricuspid valve. Mild tricuspid valve regurgitation. Tricuspid regurgitation velocities suggest a PAP of 57 mmHg. Pulmonic Valve Morphologically normal pulmonic valve without significant stenosis. There is no pulmonic regurgitation. Pericardium Normal pericardium without effusion. Aorta Normal ascending aorta dimension. Chinmay Viera MD (Electronically Signed) Final Date: 17 December 2016 16:23
--- NOTE | 2016-12-19 09:38 | Physician Query Form ---
CLICK EDIT DOCUMENT TO SELECT QUERY ANSWER --> OK --> SIGN Cely Hancock RN, CCDS Certified Clinical Artistic Director W) [phone] (f) [phone] [email or web address] PROVIDERS: Make your selection(s) from the choices in EACH section by typing an "x" and enter comments in the comment section. Please use your independent medical judgment in providing your response. This request does not imply that any particular answer is desired or expected. CLINICAL INDICATORS: (Providers should not edit this section) The medical record indicates that the patient was admitted with respiratory failure, pneumonia, Lactic Acid level of 3.3#, Pulse of 108#, Temp of 96.3 in the ER, Respirations of 30# and the patient was placed on the ventilator. Please clarify which, if any, of the following is the etiology of the above symptoms and treatment rendered: ( ) Sepsis due to a localized infection, please specify infection: ( ) Severe Sepsis (sepsis with acute organ failure) - Please specify type acute organ failure: (X ) Septic Shock (severe sepsis with hypotension) ( ) SIRS of noninfectious origin ( ) Sepsis due to a device, implant or graft, please specify: ( ) Localized infection only, without systemic illness, please specify infection : ( ) Bacteremia (abnormal lab finding only, does not indicate systemic illness) ( ) Other condition, please specify: ( ) Clinically unable to determine Criteria for Sepsis (SIRS due to an infection) should be based on 2 or more of the following being present: Temperature > 101F or < 96.8F WBC > 12,000 or < 4,000, or > 10% bands Tachycardia HR > 90 beats/minute Tachypnea RR > 20 breaths/minute or PaCO2 > 32mmHg Lactate level > 2.0 mmol/L (>4 is equivalent to severe sepsis) Altered Mental Status Mottling of skin or prolonged capillary refill Non-diabetic hyperglycemia (blood sugar >120 mg/dl) Other evidence of acute organ failure associated with sepsis ( severe sepsis) COMMENTS: PLEASE ALSO DOCUMENT RESPONSE IN PROGRESS NOTES AND/OR DISCHARGE SUMMARY Use of terms such as suspected, likely, or probable (associated with a specific diagnosis that is being evaluated, monitored, or treated as if it exists) are acceptable and can be restated in the discharge summary if not ruled out. MTDD
--- NOTE | 2016-12-19 09:39 | Physician Query Form ---
CLICK EDIT DOCUMENT TO SELECT QUERY ANSWER --> OK --> SIGN Cely Hancock RN, CCDS Certified Clinical Advertising Supervisor W) [phone] (f) [phone] [email or web address] PROVIDERS: Make your selection(s) from the choices in EACH section by typing an "x" and enter comments in the comment section. Please use your independent medical judgment in providing your response. This request does not imply that any particular answer is desired or expected. CLINICAL INDICATORS: (Providers should not edit this section) The medical record indicates that the patient was admitted with respiratory failure, pneumonia, Lactic Acid level of 3.3#, Pulse of 108#, Temp of 96.3 in the ER, Respirations of 30# and the patient was placed on the ventilator. On the : "Systolic blood pressure 77 on pressures" and later the patient is "maxed out on Levophed and Hamzah-Synephrine has been started this morning". Please clarify which, if any, of the following is the etiology of the above symptoms and treatment rendered: ( ) Hypovolemic shock (X ) Septic shock ( ) Cardiogenic shock ( ) Hemorrhagic shock ( ) Traumatic shock ( ) Shock due to, please specify etiology: ( ) Shock, unknown etiology ( ) Drug induced, please specify substance: ( ) Iatrogenic Hypotension ( ) Orthostatic Hypotension ( ) Hypotension, unknown etiology ( ) Other, please specify: ( ) Clinically unable to determine COMMENTS: PLEASE ALSO DOCUMENT RESPONSE IN PROGRESS NOTES AND/OR DISCHARGE SUMMARY Use of terms such as suspected, likely, or probable (associated with a specific diagnosis that is being evaluated, monitored, or treated as if it exists) are acceptable and can be restated in the discharge summary if not ruled out. MTDD
== END 2016-12-17 15:45 | disposition expired | DRG 871 ==
LOC: EDUNIT# → N.ED 13:14 → N.EDINP 15:36 → SUATTDRO 15:36 → N.CC 16:19
PROVIDERS: ADMIT Internal Medicine; ATTEND Family Medicine